=== PATIENT | male | born 1975 | race Caucasian/White ===

== ENCOUNTER → 2016-12-29 | Outpatient (CLI) | payer BC ==
--- NOTE | 2016-12-29 15:30 | DIAGNOSTIC IMAGING REPORT ---
LEFT LOWER QUADRANT ABDOMINAL WALL ULTRASOUND CLINICAL HISTORY: R19.00 Abdominal [id number] COMPARISON STUDY: No previous studies for comparison. FINDINGS: There is no ultrasonographic evidence of a hernia. There is a 28 x 36 x 12 mm subcutaneous mass which is relatively isoechoic to adjacent fat. This may represent a lipoma. Clinical correlation is advocated. A CT scan or MRI could be obtained in follow-up as deemed clinically necessary to confirm the suspected fatty nature of this lesion. IMPRESSION: 1. 28 x 36 x 12 mm subcutaneous mass within the subcutaneous fat of the left lower quadrant anterior abdominal wall. Definitive tissue characterization is not possible with ultrasound. The lesion does resemble adjacent fat, and therefore it is possible this represents a lipoma Electronically signed by: Khai Duval M.D. 12/29/2016 3:29 PM Dictated Date/Time: 12/29/2016 3:27 PM
== END | disposition home or self-care (01) ==
LOC: C.ULTR 14:39
PROVIDERS: ATTEND Nurse Practitioner Family
DX: R19.00 Intra-abdominal and pelvic swelling, mass and lump, unspecified site (principal)

== ENCOUNTER 2017-01-19 23:07 | Observation (INO) | payer BC ==
[~2017-01-19] VITALS: Ht 172.7 cm; Wt 87.7 kg
[2017-01-19 23:46] LABS: BASO % 0.4 %; BASO ABS # 0.04 K/uL (0-0.2); COMPLETE YES; EOS % 3.5 %; HEMATOCRIT 46.2 % (42-52); IG% 0.4 %; LYMPH % 33.6 %; LYMPH ABS # 3.34 K/uL (1.2-3.4); MEAN CELL VOLUME 84.9 fL (80-100); MEAN CORPUSCULAR HEMOGLOBIN 31.1 pg (25-34); MEAN CORPUSCULAR HGB CONC 36.6 g/dl (32-36); MEAN PLATELET VOLUME 10.1 fL (7.4-10.4); NEUT % 54.1 %; PLATELET COUNT 211 K/uL (130-400); RED BLOOD COUNT 5.44 M/uL (4.7-6.1); WHITE BLOOD COUNT 9.94 K/uL (4.8-10.8)
[2017-01-20] VITALS (7 sets, daily range): BP systolic 98–132; BP diastolic 66–88; PULSE 60–71; TEMP 36.6–36.7; O2SAT 96–98; Ht 172.7 cm; Wt 87.7 kg
[2017-01-20 00:18] LABS: ALKALINE PHOSPHATASE 70 U/L (45-117); ALT/SGPT 31 U/L (12-78); BLOOD UREA NITROGEN 15 mg/dl (7-18); BUN/CREATININE RATIO 14.4 (10-20); CALCIUM 8.7 mg/dl (8.5-10.1); CARBON DIOXIDE 30 mmol/L (21-32); CHLORIDE 105 mmol/L (98-107); CREATININE 1.02 mg/dl (0.60-1.40); GLUCOSE 97 mg/dl (70-99)
[2017-01-20] MEDS ORDERED: ASPIRIN 81 MG CHEW PO STA (00:29)
[2017-01-20 00:35] LABS: AST/SGOT 35 U/L (15-37); POTASSIUM 3.3 mmol/L (3.5-5.1); SODIUM 142 mmol/L (136-145)
[2017-01-20] MEDS ORDERED: POTASSIUM CHLORIDE 10 MEQ TABCR PO STA (00:36)
[2017-01-20] MEDS ORDERED: MoRPHine SULFATE 2 MG/ML CARP IV PRN (01:15)
[2017-01-20] MEDS ORDERED: POLYETHYLENE (MIRALAX) 17 GM PACK PO PRN (01:15)
[2017-01-20] MEDS ORDERED: NITROGLYCERIN 0.4 MG SL PER TAB CHARGE SL PRN (01:15)
[2017-01-20] MEDS ORDERED: ACETAMINOPHEN 325 MG TAB PO PRN (01:15)
[2017-01-20] MEDS ORDERED: MAGNESIUM HYDROXIDE SUSP 30 ML UDC PO PRN (01:15)
[2017-01-20] MEDS ORDERED: ALUMINUM/MAGNESIUM/SIMETH (MAALOX MAX) 30 ML UDC PO PRN (01:15)
[2017-01-20] MEDS ORDERED: ONDANSETRON INJ 2 MG/ML 2 ML VIAL IV PRN (01:15)
--- NOTE | 2017-01-20 01:19 | History and Physical ---
History & Physical Date & Time of Service: Jan 20, 2017 at 01:11 Chief Complaint: Pain In Left Arm,Chest Pain Primary Care Physician: Carmela Dorado History of Present Illness Source: patient This is a 41 yo m that is presenting to us with acute onset chest pain which occurred 2 hours [employer]LOOR HEL[employer]. The patient states that he was eating pizza at approx 2130 and started to develop left wrist pain which quickly started to radiate to the left shoulder and midsternal. It was a sharp 7/10 constant pain. The patient notes that there was no positional change that would improve or worsen the pain. He also had shortness of breath, dizziness associated with the pain. Denies any diaphoresis or nausea with the pain. The pain continued when he was in the ED and resolved after receiving ASA. This has never occurred before. He has no history of MT/ TIA. No significant family history of MT. He is a former smoker. Past Medical/Surgical History Medical Problems: (1) Allergic reaction Status: Resolved (2) Allergic reaction Status: Resolved (3) Concussion Nos Status: Resolved Family History Diabetes mellitus FH: cancer Social History Smoking Status: Former Smoker Smokeless Tobacco Use: No Alcohol Use: socially Drug Use: none Marital Status: Housing status: lives with family Occupational Status: employed Immunizations History of Influenza Vaccine: Unknown History of Tetanus Vaccine?: Unknown History of Pneumococcal: Unknown History of Hepatitis B Vaccine: Unknown Multi-Drug Resistant Organisms History of MDRO: No Allergies Coded Allergies: No Known Allergies (Unverified , 12/06/10) Home Medications No Active Prescriptions or Reported Meds Review of Systems Constitutional: No fever, No chills Eyes: No worsening of vision ENT: No hearing loss Respiratory: + shortness of breath, No cough, No sputum, No wheezing, No dyspnea on exertion, No dyspnea at rest Cardiovascular: + chest pain, No palpitations Abdomen: No pain, No nausea, No vomiting, No diarrhea, No constipation Musculoskeletal: No joint pain, No muscle pain Genitourinary - Male: No hematuria Neurologic: No numbness/tingling, No balance problems Psychiatric: No depression symptoms, No anxiety Endocrine: No fatigue Hematologic / Lymphatic: No abnormal bleeding/bruising Integumentary: No rash Physical Exam Vital Signs Date Time Temp Pulse Resp B/P (MAP) Pulse Ox O2 Delivery O2 Flow Rate FiO2 01/20/17 00:09 73 16 129/84 96 Room Air 01/19/17 23:38 100 01/19/17 23:21 99 Room Air 01/19/17 23:19 99 Room Air 01/19/17 23:12 36.8 88 16 125/81 98 Room Air General Appearance: no apparent distress Head: normocephalic, atraumatic Eyes: normal inspection ENT: normal ENT inspection Neck: supple Respiratory/Chest: normal breath sounds, no respiratory distress, no accessory muscle use, + pertinent finding (pain not illicited with palpation of the chest ) Cardiovascular: regular rate, rhythm, no murmur, normal peripheral pulses Abdomen/GI: normal bowel sounds, non tender, soft Back: normal inspection, no CVA tenderness, normal range of motion Extremities/Musculoskelatal: normal inspection, no calf tenderness, no pedal edema, normal range of motion Neurologic/Psych: alert, normal mood/affect, oriented x 3 Skin: normal color, warm/dry, no rash Lymphatic: no adenopathy Diagnostics Laboratory Results Results Past 24 Hours Test 01/19/17 23:27 Range/Units White Blood Count 9.94 4.8-10.8 K/uL Red Blood Count 5.44 4.7-6.1 M/uL Hemoglobin 16.9 14.0-18.0 g/dL Hematocrit 46.2 42-52 % Mean Corpuscular Volume 84.9 80-100 fL Mean Corpuscular Hemoglobin 31.1 25-34 pg Mean Corpuscular Hemoglobin Concent 36.6 32-36 g/dl Platelet Count 211 130-400 K/uL Mean Platelet Volume 10.1 7.4-10.4 fL Neutrophils (%) (Auto) 54.1 % Lymphocytes (%) (Auto) 33.6 % Monocytes (%) (Auto) 8.0 % Eosinophils (%) (Auto) 3.5 % Basophils (%) (Auto) 0.4 % Neutrophils # (Auto) 5.37 1.4-6.5 K/uL Lymphocytes # (Auto) 3.34 1.2-3.4 K/uL Monocytes # (Auto) 0.80 0.11-0.59 K/uL Eosinophils # (Auto) 0.35 0-0.5 K/uL Basophils # (Auto) 0.04 0-0.2 K/uL RDW Standard Deviation 38.7 36.4-46.3 fL RDW Coefficient of Variation 12.6 11.5-14.5 % Immature Granulocyte % (Auto) 0.4 % Immature Granulocyte # (Auto) 0.04 0.00-0.02 K/uL Sodium Level 142 136-145 mmol/L Potassium Level 3.3 3.5-5.1 mmol/L Chloride Level 105 98-107 mmol/L Carbon Dioxide Level 30 21-32 mmol/L Anion Gap 7.0 3-11 mmol/L Blood Urea Nitrogen 15 7-18 mg/dl Creatinine 1.02 0.60-1.40 mg/dl Est Creatinine Clear Calc Drug Dose 105.2 ml/min Estimated GFR () 106.8 Estimated GFR (Non- 92.2 BUN/Creatinine Ratio 14.4 10-20 Random Glucose 97 70-99 mg/dl Calcium Level 8.7 8.5-10.1 mg/dl Total Bilirubin 0.4 0.2-1 mg/dl Direct Bilirubin < 0.1 0-0.2 mg/dl Aspartate Amino Transf (AST/SGOT) 35 15-37 U/L Alanine Aminotransferase (ALT/SGPT) 31 12-78 U/L Alkaline Phosphatase 70 45-117 U/L Total Protein 6.8 6.4-8.2 gm/dl Albumin 3.8 3.4-5.0 gm/dl Lipase 169 73-393 U/L Diagnostic Radiology No significant pulmonary congestion or opacities noted EKG HR 90, questionable septal infarct in the past, no acute ischemic changes, no ectopy Impression Assessment and Plan This is a 41 yo m that is suffering from chest pain which is concerning for myocardial ischemia based on history. Chest pain NYD - tele admission - troponin trend - echo in am; if troponin negative could change to stress echo - EKG in am Hypokalemia - found to have potassium of 3.3 in the ED - will recheck in the am DVT Prophylaxis SCD Attending Addendum: I have physically seen and examined this patient, have directed the resident's medical activities, and agree with the H&P as noted above with the following exceptions as noted. The patient is awake, alert and oriented 3, well-developed and well-nourished , normocephalic and atraumatic, lying in bed and in no acute distress. HEENT--PERRL, EOMI, mucous membranes and oropharynx normal. Neck--supple, no JVD or bruits, thyroid normal, trachea midline, no adenopathy. Heart--normal S1 and S2, no extra beats, no murmurs, rubs or gallops. Lungs--clear bilaterally with good air movement, no respiratory distress, no accessory muscle use. Abdomen--normal bowel sounds and soft, nontender and nondistended, no hernias or masses, no organomegaly. Extremities--no cyanosis, clubbing or edema. There are good distal pulses b/l. Dermatologic--normal skin turgor, normal color, warm and dry, no abnormal lymph nodes, no rash. Neurologic--cranial nerves II through XII grossly intact. Rheumatologic--normal range of motion. Psychiatric--normal affect. Assessment and Plan: Precordial chest pain with radiation to left arm-- The patient will be admitted to telemetry for serial cardiac enzymes, cardiac rhythm monitoring and a 2-D echocardiogram with Dopplers. Similar presentation to his visit to the emergency department February 2016. His second EKG tonight showed slightly worse ST-T changes in inferior leads, but the second was actually more similar to EKG from February 2016. If the above workup is negative, the patient will require a stress echocardiogram prior to discharge. Next Hypokalemia-- Replace both orally and IV, and repeat in the a.m. May be a contributor to his chest pain symptoms Level of Care Telemetry Advanced Directives Existing Advance Directive: No Existing Living Will: No Existing Power of Billet Straightener: No Resuscitation Status FULL RESUSCITATION VTE Prophylaxis VTE Risk Assessment Done? Y/N: Yes Risk Level: Moderate Given or contraindicated: SCD's Social Service Consult None Apply Note Total Time: Critical Care 30 - 74 minutes
--- NOTE | 2017-01-20 01:52 | EMERGENCY ROOM VISIT NOTE ---
History First contact with patient: 23:10 Chief Complaint: CARDIAC ASSESSMENT Stated Complaint: PAIN IN LEFT ARM,CHEST PAIN Nursing Triage Summary: Pt complains midsternal heaviness that started 45 minutes ago while eating pizza. Pt reports numbness in left arm. +dizziness and SOB. Denies any cardiac history History of Present Illness The patient is a 41 year old male who presents to the Emergency Room with complaints of left-sided chest pain that radiates down his arm with shortness of breath for the past hour that started after eating pizza. Nothing makes it better or worse. Pain 5 out of 10. Described as pressure. It occasionally goes to his jaw. Patient denies prior heart disease, family history of heart disease, family history of blood clots, recent travel, nausea, vomiting, diarrhea, back pain, jaw pain, diaphoresis, abdominal pain, leg pain or swelling. He does chew tobacco. No prior stress test or echo. Review of Systems See HPI for pertinent positives & negatives. A total of 10 systems reviewed and were otherwise negative. Past Medical/Surgical History Medical Problems: (1) Allergic reaction (2) Allergic reaction (3) Chest pain of uncertain etiology (4) Concussion Nos Family History FH: cancer Social History Smoking Status: Former Smoker Alcohol Use: none Marital Status: Housing Status: lives with family Occupation Status: employed Current/Historical Medications No Active Prescriptions or Reported Meds Physical Exam Vital Signs Date Time Temp Pulse Resp B/P (MAP) Pulse Ox O2 Delivery O2 Flow Rate FiO2 01/20/17 01:23 77 16 109/70 98 Room Air 01/20/17 00:09 73 16 129/84 96 Room Air 01/19/17 23:38 100 01/19/17 23:21 99 Room Air 01/19/17 23:19 99 Room Air 01/19/17 23:12 36.8 88 16 125/81 98 Room Air Physical Exam VITALS: Vitals are noted on the nurse's note and reviewed by myself. Vital signs stable. GENERAL: Pleasant male, in no acute distress, nondiaphoretic, well-developed well-nourished. SKIN: The skin was without rashes, erythema, edema, or bruising. There is no tenting of the skin. Capillary reflex less than 2 seconds. HEAD: Normocephalic atraumatic. EARS: External auditory canals clear, tympanic membranes pearly benoit without erythema or effusion bilaterally. EYES: Pupils equal round and reactive to light and accommodation. Conjunctivae without injection, sclerae without icterus. Extraocular movements intact. NOSE: Patent, turbinates without inflammation or discharge. MOUTH: Mucous membranes moist. Pharynx without erythema or exudate. Uvula midline. Airway patent. Tongue does not deviate. NECK: Supple without nuchal rigidity. No lymphadenopathy. No thyromegaly. Cervical spine is nontender. No JVD. HEART: Regular rate and rhythm without murmurs gallops or rubs. LUNGS: Clear to auscultation bilaterally without wheezes, rales or rhonchi. No dullness to percussion. No retractions or accessory muscle use. Chest nontender to palpation ABDOMEN: Positive bowel sounds x 4. Normal tympanic percussion. Soft, nontender, without masses or organomegaly. Russell sign negative. No guarding or rebound tenderness. MUSCULOSKELETAL: No muscle atrophy, erythema, or edema noted. NEURO: Patient was alert and oriented to person place and time. Normal sensation to light and sharp touch. No focal neurological deficits. Medical Decision & Procedures Laboratory Results 01/19/17 23:27 Red Blood Count 5.44, Mean Corpuscular Volume 84.9, Mean Corpuscular Hemoglobin 31.1, Mean Corpuscular Hemoglobin Concent 36.6, Mean Platelet Volume 10.1, Neutrophils (%) (Auto) 54.1, Lymphocytes (%) (Auto) 33.6, Monocytes (%) (Auto) 8.0, Eosinophils (%) (Auto) 3.5, Basophils (%) (Auto) 0.4, Neutrophils # (Auto) 5.37, Lymphocytes # (Auto) 3.34, Monocytes # (Auto) 0.80, Eosinophils # (Auto) 0.35, Basophils # (Auto) 0.04 01/19/17 23:27 Test 01/19/17 23:27 White Blood Count 9.94 K/uL (4.8-10.8) Red Blood Count 5.44 M/uL (4.7-6.1) Hemoglobin 16.9 g/dL (14.0-18.0) Hematocrit 46.2 % (42-52) Mean Corpuscular Volume 84.9 fL (80-100) Mean Corpuscular Hemoglobin 31.1 pg (25-34) Mean Corpuscular Hemoglobin Concent 36.6 g/dl (32-36) Platelet Count 211 K/uL (130-400) Mean Platelet Volume 10.1 fL (7.4-10.4) Neutrophils (%) (Auto) 54.1 % Lymphocytes (%) (Auto) 33.6 % Monocytes (%) (Auto) 8.0 % Eosinophils (%) (Auto) 3.5 % Basophils (%) (Auto) 0.4 % Neutrophils # (Auto) 5.37 K/uL (1.4-6.5) Lymphocytes # (Auto) 3.34 K/uL (1.2-3.4) Monocytes # (Auto) 0.80 K/uL (0.11-0.59) Eosinophils # (Auto) 0.35 K/uL (0-0.5) Basophils # (Auto) 0.04 K/uL (0-0.2) RDW Standard Deviation 38.7 fL (36.4-46.3) RDW Coefficient of Variation 12.6 % (11.5-14.5) Immature Granulocyte % (Auto) 0.4 % Immature Granulocyte # (Auto) 0.04 K/uL (0.00-0.02) Anion Gap 7.0 mmol/L (3-11) Est Creatinine Clear Calc Drug Dose 105.2 ml/min Estimated GFR () 106.8 Estimated GFR (Non- 92.2 BUN/Creatinine Ratio 14.4 (10-20) Calcium Level 8.7 mg/dl (8.5-10.1) Total Bilirubin 0.4 mg/dl (0.2-1) Direct Bilirubin < 0.1 mg/dl (0-0.2) Aspartate Amino Transf (AST/SGOT) 35 U/L (15-37) Alanine Aminotransferase (ALT/SGPT) 31 U/L (12-78) Alkaline Phosphatase 70 U/L (45-117) Total Protein 6.8 gm/dl (6.4-8.2) Albumin 3.8 gm/dl (3.4-5.0) Lipase 169 U/L (73-393) Medications Administered Medications (Trade) Dose Ordered Sig/Avtar Route Start Time Stop Time Status Last Admin Dose Admin Aspirin (Aspirin Chew) 324 mg NOW STAT PO 01/20/17 00:29 01/20/17 00:31 DC 01/20/17 00:38 324 MG Potassium Chloride (Klor-Con M10) 20 meq NOW STAT PO 01/20/17 00:36 01/20/17 00:37 DC 01/20/17 00:40 20 MEQ ED Course Prior records/ancillary studies reviewed. Triage Nursing notes reviewed. The patient's history was concerning for chest pain. Differential diagnosis: Etiologies such as cardiac ischemia, aortic dissection, pulmonary embolism, pneumonia, pneumothorax, musculoskeletal, infections, pericarditis, myocarditis , esophageal rupture, gastrointestinal, as well as others were entertained. Physical examination: As above. ER treatment provided: asa On reassessment the patient felt better. Diagnostic interpretation by me: The electrocardiogram was normal sinus, normal intervals, no acute ST-T wave changes, Q waves in V1 and V2, unchanged from prior EKG. Impression normal sinus rhythm with Q waves in the septal leads unchanged from chart review interpreted by myself The labs revealed Negative d-dimer. Negative troponin. Imaging studies: Chest x-ray with no acute consolidation, pneumothorax or free air per my interpretation Consultation: A consultation was placed with the hospitalist, Dr. Duarte. The case was discussed and diagnostics were reviewed. The patient was evaluated in the ER for further treatment. Exam and history seem consistent precordial chest pain with an abnormal EKG. He was given aspirin. Pain is resolved. Negative d-dimer. Negative troponin. He will be evaluated by medicine for possible admission. By the evaluation outlined above emergent etiologies such as aortic dissection, pulmonary embolism, pneumonia, pneumothorax, infections, pericarditis, myocarditis, gastrointestinal, as well as others were deemed relatively unlikely. The pt informed about the findings as listed above. All questions were answered and pleased with the treatment. Case reviewed with my attending. Medical Decision As above Medication Reconcilliation Current Medication List: was personally reviewed by me Blood Pressure Screening Patient's blood pressure: Normal blood pressure Impression Primary Impression: Precordial chest pain Departure Information Dispostion Being Evaluated By Hospitalist Condition GOOD Prescriptions No Active Prescriptions or Reported Meds Referrals Carmela Dorado (PCP) Patient Instructions My [facility]
[2017-01-20] MEDS ORDERED: IV FLUIDS COMPLETED PRN (03:45)
[2017-01-20] MEDS ORDERED: INFLUENZA ADMINISTRATION CHARGE ONE (04:30)
[2017-01-20] MEDS ORDERED: INFLUENZA VIRUS QUAD VACCINE 0.5 ML SYR IM. ONE (04:30)
[2017-01-20 06:43] LABS: CALCIUM 8.4 mg/dl (8.5-10.1); CREATININE 0.84 mg/dl (0.60-1.40); POTASSIUM 3.7 mmol/L (3.5-5.1)
--- NOTE | 2017-01-20 06:44 | DIAGNOSTIC IMAGING REPORT ---
CHEST ONE VIEW PORTABLE CLINICAL HISTORY: Atypical chest pain COMPARISON STUDY: 02/07/2016 FINDINGS: The cardiac and mediastinal contours are normal. There is no evidence of focal pulmonary consolidation. There is no evidence of failure. No pleural effusions are visualized.[ IMPRESSION: No active disease in the chest. Electronically signed by: Khai Duval M.D. 01/20/2017 6:43 AM Dictated Date/Time: 01/20/2017 6:43 AM
[2017-01-20 09:07] LABS: POINT OF CARE TROPONIN I < 0.030 ng/ml (0-0.045)
[2017-01-20 10:26] LABS: CHOLESTEROL/HDL RATIO 4.4
--- NOTE | 2017-01-20 14:17 | Discharge Summary ---
Discharge Summary Date of Service Jan 20, 2017. (Rosa Isela Serna PA-C) Discharge Summary Admission Date: Jan 20, 2017 at 01:11 Discharge Date: Jan 20, 2017 Discharge Disposition: Home Principal Diagnosis: Chest pain Problems/Secondary Diagnoses: hypokalemia ?GERD Immunizations: Have You Had Influenza Vaccine: Unknown History of Tetanus Vaccine?: Unknown History of Pneumococcal: Unknown History of Hepatitis B Vaccine: Unknown Procedures: CHEST ONE VIEW PORTABLE CLINICAL HISTORY: Atypical chest pain COMPARISON STUDY: 02/07/2016 FINDINGS: The cardiac and mediastinal contours are normal. There is no evidence of focal pulmonary consolidation. There is no evidence of failure. No pleural effusions are visualized.[ IMPRESSION: No active disease in the chest. Electronically signed by: Khai Duval M.D. 01/20/2017 6:43 AM Dictated Date/Time: 01/20/2017 6:43 AM The status of this report is Signed. Draft = Not yet reviewed or approved by Radiologist. Signed = Reviewed and approved by Radiologist. Stress ECHO Interpretation Summary * Name: RAYMUNDO BURNS Study Date: 01/20/2017 06:21 AM BP: 132/88 mmHg * Patient Location: [facility] HR: 71 * : 1975 (M/d/yyyy) Gender: Male Height: 68 in * Age: 41 yrs Ethnicity: [place] Weight: 195 lb * Ordering Physician: Astrid Valladares * Performed By: Blanka Wyman RDCS * * Reason For Study: CHEST PAIN * BSA: 2.0 m2 * -- Conclusions -- * Stress Echo: * 1. No ischemic changes on stress echo at 81% MPHR. Cannot rule out ischemic changes at faster heart rates. * 2. Nondiagnostic exercise ECG as target heart rate was not attained. * 3. Appropriate blood pressure response to exercise. * 4. No arrhythmia. * 5. Study terminated due to fatigue. No chest pain reported. * 6. Excellent exercise tolerance. * Echo: * 1. Normal left ventricular size and systolic function. EF 60-65%. No regional wall motion abnormalities. No left ventricular hypertrophy. No significant diastolic dysfunction. * 2. No significant valvular abnormalities. Procedure Details * Left Ventricular Findings with Stress Name: RAYMUNDO BURNS Study Date: 01/20/2017 06:21 AM BP: 132/88 mmHg Patient Location: [facility] HR: 71 : 1975 (M/d/yyyy) Gender : Male Height: 68 in Age: 41 yrs Ethnicity: [place] Weight: 195 lb Ordering Physician: Astrid Valladares Performed By: Blanka Wyman RIKI Reason For Study: CHEST PAIN BSA: 2.0 m2 * Left Ventricle The left ventricle is normal in size. There is normal left ventricular wall thickness. Ejection Fraction = 60-65%. Left ventricular systolic function is normal. The left ventricular ejection fraction increases normally with stress. The left ventricular end-systolic cavity size reduces post-stress (normal response) . The left ventricular wall motion with stress is normal. Resting wall motion: Normal. Stress wall motion: Appropriate increase in Left ventricular systolic function and decrease in cavity size. No stress induced segmental wall motion abnormalities. No regional wall motion abnormalities noted. * Right Ventricle The right ventricle is normal in size and function. The right ventricular systolic function is normal as assessed by tricuspid annular plane systolic excursion (TAPSE) (normal >1.5 cm). * Atria The left atrial size is normal. Right atrial size is normal. There is no evidence of atrial septal defect, but resolution does not allow assessment for a patent foramen ovale. * Mitral Valve The mitral valve leaflets appear normal. There is no evidence of stenosis, fluttering, or prolapse. Significant mitral regurgitation is absent. * Tricuspid Valve The tricuspid valve is not well visualized, but is grossly normal. There is no tricuspid stenosis. There is trace tricuspid regurgitation. * Aortic Valve The aortic valve is trileaflet. No hemodynamically significant valvular aortic stenosis. No aortic regurgitation is present. * Pulmonic Valve The pulmonary valve is inadequately visualized, but the Doppler data is adequate for interpretation. There is no significant pulmonary regurgitation. * Great Vessels The aortic root is normal size. Normal IVC size and inspiratory collapse. * Pericardium There is no pericardial effusion. * Stress Parameters NSR at 66 bpm. Stress ECG: No ST changes. No arrhythmias. The stress portion of this study was personally supervised by the undersigned interpreting physician. Rest heart rate was '58' BPM. Rest blood pressure was '116/67' Maximum heart rate achieved was 148 bpm. Maximum heart rate was 81 % of maximum age-predicted heart rate. Maximum blood pressure was '172/76' Total exercise time was '12:00' Maximum exercise MET level achieved was '13.4' METS Maximum treadmill speed was '4.20' miles per hour. Maximum treadmill elevation was '16.00'% grade. Target Heart Rate was not achieved due to fatigue. The patient exhibited fatigue during exercise. Normal blood pressure response to exercise. Exercise was stopped due to fatigue. * Left Ventricular Findings with Stress (Rosa Isela Serna ., PA-C) Medication Reconciliation Medication Profile: No Active Prescriptions or Reported Meds Discharge Exam Review of Systems: Constitutional: No fever, No chills, No sweats, No weakness, No fatigue ENT: No hearing loss Respiratory: No cough, No sputum, No shortness of breath, No dyspnea on exertion, No hemoptysis Cardiovascular: No chest pain, No orthopnea, No edema, No palpitations Abdomen: No pain, No nausea, No vomiting, No diarrhea, No constipation, No GI bleeding Musculoskeletal: No joint pain, No muscle pain, No swelling, No calf pain Genitourinary - Male: No hematuria, No dysuria Neurologic: No weakness, No numbness/tingling Psychiatric: No depression symptoms, No anxiety Hematologic / Lymphatic: No abnormal bleeding/bruising Integumentary: No rash, No itch, No new/changing skin lesions Physical Exam: General Appearance: no apparent distress Eyes: normal inspection, PERRL ENT: hearing grossly normal Neck: supple Respiratory/Chest: lungs clear, normal breath sounds, no respiratory distress, no accessory muscle use Cardiovascular: regular rate, rhythm Abdomen / GI: normal bowel sounds, non tender, soft Extremities: no calf tenderness, no pedal edema Neurologic/Psychiatric: alert, normal mood/affect, oriented x 3 Skin: normal color, warm/dry, no rash (Rosa Isela Serna ., PA-C) Hospital Course Admission H&P: This is a 41 yo m that is presenting to us 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 The patient states that he was eating pizza at approx 2130 and started to develop left wrist pain which quickly started to radiate to the left shoulder and midsternal. It was a sharp 7/10 constant pain. The patient notes that there was no positional change that would improve or worsen the pain. He also had shortness of breath, dizziness associated with the pain. Denies any diaphoresis or nausea with the pain. The pain continued when he was in the ED and resolved after receiving ASA. This has never occurred before. He has no history of NM/ TIA. No significant family history of NM. He is a former smoker. Physical Exam Vital Signs Date Time Temp Pulse Resp B/P (MAP) Pulse Ox O2 Delivery O2 Flow Rate FiO2 01/20/17 00:09 73 16 129/84 96 Room Air 01/19/17 23:38 100 01/19/17 23:21 99 Room Air 01/19/17 23:19 99 Room Air 01/19/17 23:12 36.8 88 16 125/81 98 Room Air General Appearance: no apparent distress Head: normocephalic, atraumatic Eyes: normal inspection ENT: normal ENT inspection Neck: supple Respiratory/Chest: normal breath sounds, no respiratory distress, no accessory muscle use, + pertinent finding (pain not illicited with palpation of the chest ) Cardiovascular: regular rate, rhythm, no murmur, normal peripheral pulses Abdomen/GI: normal bowel sounds, non tender, soft Back: normal inspection, no CVA tenderness, normal range of motion Extremities/Musculoskelatal: normal inspection, no calf tenderness, no pedal edema, normal range of motion Neurologic/Psych: alert, normal mood/affect, oriented x 3 Skin: normal color, warm/dry, no rash Lymphatic: no adenopathy Hospital Course: Chest pain, ACS r/o, ?secondary to GERD: - Admitted to [facility] for cardiac monitoring- no acute events - O2 protocol - Trended cardiac enzymes- negative - Followed EKG- no significant changes compared to prior EKGs - IV Morphine and Nitro PRN - Stress ECHO- unremarkable - Resting ECHO- unremarkable - CXR unremarkable - D-dimer negative - ?GERD- recommended taking Maalox PRN and f/u w/ PCP Hypokalemia at 3.3- RESOLVED: Treated w/ IV and PO KCL supplement Tobacco abuse: Counselling provided DVT prophylaxis: SCDs, ambulation Code Status LEVEL I, FULL Dispo: Discharge to home Total Time Spent: Greater than 30 minutes This includes examination of the patient, discharge planning, medication reconciliation, and communication with other providers. (Rosa Isela Serna ., PA-C) Discharge Instructions Please refer to the electronic Patient Visit Report (Discharge Instructions) for additional information. 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 Discussed with BETTY Serna and agree with findings and plan as documented in the note. Any exceptions or clarifications are listed here: Pt has not had any further CP since admission. CP started in left wrist while eating pepperoni pizza, radiated up left arm and into central chest, felt pressure-like in nature, no other radiation, did have some associated SOB, no diaphoresis. Was a 7/10 in severity, was the worst for 5-10 min, then reduced but remained for about another hour until given ASA in the ER. He had this similar presentation last Feb 2016 as per ER records. 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 He used to smoke 1 PPD x 15 years, then reduced and now only smokes a couple times per month. Does chew tobacco daily. ECGs with very subtle TW changes leadds III and intermittently in aVF over the years consistently. J-point elevation in 1 and aVL. Trop neg x 3, I personally was present during his Exercise treadmill test and stress ECHO which was neg for WMAs, ECG portion nondiagnostic due to 81% MHR but asymptomatic nad no ECG changes to that point. Vitals and tele reviewed-SB in 50s-60s, no arrhythmia NAD, AAOx3 RRR no mgr, no carotid bruits, no chest wall tenderness CTAB no wcr Abd +BS, soft NT ND Ext no edema or calf tenderness, 2+ DP pulses Trop neg x 3, D-dimer neg, hypokalemia resolved Lipid panel good Resting ECHO also normal as per CArdiology 41 yo male with risk factor of smoking, here with atypical CP. R/o for ACS, likely GERD-related. Strongly encouraged to quit using all tobacco products. Can take Maalox prn return of symptoms f/u PCP Stable for dc to home Documented By: Leticia Joseph (Leticia Joseph MD)
--- NOTE | 2017-01-20 14:21 | Discharge Instructions ---
Discharge Instructions Date of Service Jan 20, 2017. Admission Reason for Admission: Chest Pain Of Uncertain Etiology Discharge Discharge Diagnosis / Problem: Chest pain of uncertain etiology; hypokalemia Discharge Goals Goal(s): Decrease discomfort, Learn about illness, Diagnostic testing, Therapeutic intervention, Prevent Disease Progression Activity Recommendations Activity Limitations: resume your previous activity . Instructions / Follow-Up Instructions / Follow-Up You were admitted to [facility] due to symptoms concerning for an acute cardiac issue. This was ruled out through cardiac monitoring, cardiac enzymes, and a stress echocardiogram. Your symptoms have resolved and you are stable for discharge. It is possible your symptoms were related to acid reflux- if symptoms reoccur, try taking Maalox (which can be bought over-the- counter). Please follow-up with your PCP for further workup/management of your symptoms. FOLLOW-UPS: Please follow-up with your PCP within 5-7 days Please follow-up/keep all of your subspecialty appointments Home Care: * If you are having chest pain, call 911 for an ambulance. Do NOT drive yourself to the hospital. * Ask your family members to learn CPR. * Learn to take your own blood pressure and pulse. Keep a record of your results. Ask your doctor when you should seek emergency medical attention. He or she will tell you which blood pressure reading is dangerous. Lifestyle Changes: * Maintain a healthy weight. Get help to lose any extra pounds. * Cut back on salt. * Limit canned, dried, packaged, and fast foods. * Don't add salt to your food. * Season foods with herbs instead of salt when you cook. * Break the smoking habit. Enroll in a stop-smoking program to improve your chances of success. * Limit fatty foods. * Ask your doctor about having your lipid levels checked regularly. * Build up your activity according to your doctor's recommendation. * Ask your doctor when it's okay to resume sexual activity. * Tell your doctor about any erectile dysfunction (ED) medication you are taking. Some ED medications are not safe if you take certain heart medications. * Try to manage stress. Follow Up: It is important for you to keep your follow up appointments with your medical provider. Current Hospital Diet Patient's current hospital diet: Discharge Diet Recommended Diet: Regular Diet Pending Studies Studies pending at discharge: no Laboratory Results Lipid Panel Test 01/20/17 05:45 Range/Units Triglycerides Level 159 H 0-150 mg/dl Cholesterol Level 184 0-200 mg/dl HDL Cholesterol 42 mg/dl Cholesterol/HDL Ratio 4.4 LDL Cholesterol, Calculated 110 mg/dl Medical Emergencies . Who to Call and When: Medical Emergencies: If at any time you feel your situation is an emergency, please call 911 immediately. Call 911 immediately or go to your nearest Emergency Room if you experience any of the following: Warning Signs and Symptoms of a Heart Attack * Chest pain that is not relieved by medication * Shortness of breath . Non-Emergent Contact Non-Emergency issues call your: Primary Care Provider . . "Provider Documentation" section prepared by Rosa Isela Serna. . AMI Core Measures Reason no ASA as I/P: Treatment provided - N/A Reason no ASA at D/C: Treatment not indicated Reason no statin as I/P: Treatment not indicated Reason no statin at D/C: Treatment not indicated VTE Core Measure Inpt VTE Proph given/why not?: SCD's
--- NOTE | 2017-01-20 15:06 | EXERCISE STRESS ECHO ---
*NOTICE TO RECEIVING DEMOCRAT AGENCY This information is strictly Confidential and protected under [place] law. [place] law prohibits you from making any further disclosure of this information unless further disclosure is expressly permitted by the written consent of the person to whom it pertains or is authorized by law. A general authorization for the release of medical or other information is not sufficient for this purpose. Hospital accepts no responsibility if the information is made available to any other person, INCLUDING THE PATIENT. Interpretation Summary * Name: RAYMUNDO BURNS Study Date: 01/20/2017 06:21 AM BP: 132/88 mmHg * Patient Location: 278[facility] HR: 71 * : 1975 (/yy) Gender: Male Height: 68 in * Age: 41 yrs Ethnicity: [place] Weight: 195 lb * Ordering Physician: Astrid Valladares * Performed By: Blanka Wyman RDCS * * Reason For Study: CHEST PAIN * BSA: 2.0 m2 * -- Conclusions -- * Stress Echo: * 1. No ischemic changes on stress echo at 81% MPHR. Cannot rule out ischemic changes at faster heart rates. * 2. Nondiagnostic exercise ECG as target heart rate was not attained. * 3. Appropriate blood pressure response to exercise. * 4. No arrhythmia. * 5. Study terminated due to fatigue. No chest pain reported. * 6. Excellent exercise tolerance. * Echo: * 1. Normal left ventricular size and systolic function. EF 60-65%. No regional wall motion abnormalities. No left ventricular hypertrophy. No significant diastolic dysfunction. * 2. No significant valvular abnormalities. Procedure Details * Left Ventricular Findings with Stress Name: RAYMUNDO BURNS Study Date: 01/20/2017 06:21 AM BP: 132/88 mmHg Patient Location: [facility] HR: 71 : 1975 (/) Gender: Male Height: 68 in Age: 41 yrs Ethnicity: [place] Weight: 195 lb Ordering Physician: Astrid Valladares Performed By: Blanka Wyman RDCS Reason For Study: CHEST PAIN BSA: 2.0 m2 * Left Ventricle The left ventricle is normal in size. There is normal left ventricular wall thickness. Ejection Fraction = 60-65%. Left ventricular systolic function is normal. The left ventricular ejection fraction increases normally with stress. The left ventricular end-systolic cavity size reduces post-stress (normal response). The left ventricular wall motion with stress is normal. Resting wall motion: Normal. Stress wall motion: Appropriate increase in Left ventricular systolic function and decrease in cavity size. No stress induced segmental wall motion abnormalities. No regional wall motion abnormalities noted. * Right Ventricle The right ventricle is normal in size and function. The right ventricular systolic function is normal as assessed by tricuspid annular plane systolic excursion (TAPSE) (normal >1.5 cm). * Atria The left atrial size is normal. Right atrial size is normal. There is no evidence of atrial septal defect, but resolution does not allow assessment for a patent foramen ovale. * Mitral Valve The mitral valve leaflets appear normal. There is no evidence of stenosis, fluttering, or prolapse. Significant mitral regurgitation is absent. * Tricuspid Valve The tricuspid valve is not well visualized, but is grossly normal. There is no tricuspid stenosis. There is trace tricuspid regurgitation. * Aortic Valve The aortic valve is trileaflet. No hemodynamically significant valvular aortic stenosis. No aortic regurgitation is present. * Pulmonic Valve The pulmonary valve is inadequately visualized, but the Doppler data is adequate for interpretation. There is no significant pulmonary regurgitation. * Great Vessels The aortic root is normal size. Normal IVC size and inspiratory collapse. * Pericardium There is no pericardial effusion. * Stress Parameters NSR at 66 bpm. Stress ECG: No ST changes. No arrhythmias. The stress portion of this study was personally supervised by the undersigned interpreting physician. Rest heart rate was '58' BPM. Rest blood pressure was '116/67' Maximum heart rate achieved was 148 bpm. Maximum heart rate was 81 % of maximum age-predicted heart rate. Maximum blood pressure was '172/76' Total exercise time was '12:00' Maximum exercise MET level achieved was '13.4' METS Maximum treadmill speed was '4.20' miles per hour. Maximum treadmill elevation was '16.00'% grade. Target Heart Rate was not achieved due to fatigue. The patient exhibited fatigue during exercise. Normal blood pressure response to exercise. Exercise was stopped due to fatigue. * Left Ventricular Findings with Stress A complete two-dimensional transthoracic echocardiogram was performed (2D, M-mode, Doppler and color flow Doppler). * * MMode 2D Measurements and Calculations * IVSd 0.93 cm * IVSs 1.9 cm * * LVIDd 4.8 cm * LVIDs 3.1 cm * LVPWd 0.94 cm * LVPWs 1.6 cm * * IVS/LVPW 0.98 * FS 34.7 % * EDV(Teich) 106.7 ml * ESV(Teich) 38.7 ml * EF(Teich) 63.8 % * * EDV(cubed) 109.6 ml * ESV(cubed) 30.5 ml * EF(cubed) 72.1 % * % IVS thick 110.1 % * % LVPW thick 71.7 % * * LV mass(C)d 154.8 grams * LV mass(C)dI 76.6 grams/m\S\2 * LV mass(C)s 224.8 grams * LV mass(C)sI 111.2 grams/m\S\2 * * SV(Teich) 68.0 ml * SI(Teich) 33.7 ml/m\S\2 * SV(cubed) 79.0 ml * SI(cubed) 39.1 ml/m\S\2 * * Ao root diam 3.1 cm * Ao root area 7.7 cm\S\2 * ACS 1.5 cm * LA dimension 3.2 cm * * asc Aorta Diam 2.5 cm * * LA/Ao 1.0 * LVOT diam 2.1 cm * LVOT area 3.6 cm\S\2 * * LVAd ap4 28.1 cm\S\2 * LVLd ap4 8.3 cm * EDV(MOD-sp4) 78.8 ml * EDV(sp4-el) 80.9 ml * LVAs ap4 14.1 cm\S\2 * LVLs ap4 6.4 cm * ESV(MOD-sp4) 26.6 ml * ESV(sp4-el) 26.4 ml * EF(MOD-sp4) 66.2 % * EF(sp4-el) 67.4 % * * LVAd ap2 29.6 cm\S\2 * LVLd ap2 8.4 cm * EDV(MOD-sp2) 85.9 ml * EDV(sp2-el) 88.9 ml * LVAs ap2 14.9 cm\S\2 * LVLs ap2 6.2 cm * ESV(MOD-sp2) 31.4 ml * ESV(sp2-el) 30.7 ml * EF(MOD-sp2) 63.4 % * EF(sp2-el) 65.5 % * * LVLd %diff 1.2 % * EDV(MOD-bp) 82.8 ml * LVLs %diff -4.78 % * ESV(MOD-bp) 29.7 ml * EF(MOD-bp) 64.2 % * * SV(MOD-sp4) 52.1 ml * SI(MOD-sp4) 25.8 ml/m\S\2 * * SV(MOD-sp2) 54.5 ml * SI(MOD-sp2) 26.9 ml/m\S\2 * * SV(MOD-bp) 53.1 ml * SI(MOD-bp) 26.3 ml/m\S\2 * * SV(sp4-el) 54.5 ml * SI(sp4-el) 27.0 ml/m\S\2 * * SV(sp2-el) 58.2 ml * SI(sp2-el) 28.8 ml/m\S\2 * * * * * * Doppler Measurements and Calculations * MV E max esteban 82.5 cm/sec * MV A max esteban 38.8 cm/sec * * MV E/A 2.1 * * MV dec time 0.18 sec * * Ao V2 max 107.8 cm/sec * Ao max PG 4.7 mmHg * Ao max PG (full) 0.99 mmHg * ROZINA(V,A) 3.2 cm\S\2 * ROZINA(V,D) 3.2 cm\S\2 * * LV V1 max PG 3.7 mmHg * * LV V1 max 95.7 cm/sec * * PA V2 max 66.3 cm/sec * PA max PG 1.8 mmHg * * *
== END 2017-01-20 16:15 | disposition home or self-care (01) ==
LOC: C.EDB 23:08 → C.MED 01-20 01:11 → ENRESERV 01-20 01:40
PROVIDERS: ADMIT Hospitalist; ATTEND Family Medicine
DX: R07.2 Precordial pain (principal); E87.6 Hypokalemia; Z87.891 Personal history of nicotine dependence